=== PATIENT | male | born 1995 | race Two or more races ===

== ENCOUNTER 2018-07-02 11:41 | Emergency (ER) | payer OTHER ==
[~2018-07-02] VITALS: Ht 188 cm; Wt 72.6 kg
[2018-07-02] MEDS ORDERED: LIDOCAINE 2% (LOCAL ANESTH.) PF 5ml SDV ONE (13:14)
[2018-07-02] MEDS ORDERED: cefTRIAXone 1GM/50ML D5W 50 ML IV ONE ×2 (13:47→14:00)
[2018-07-02 15:11] VITALS: BP 120/68
== END 2018-07-02 16:26 ==
LOC: ER 11:45 → EEVIPCON 11:45 → ER 16:26
DX: S63.125A Dislocation of interphalangeal joint of left thumb, initial encounter (principal); S61.012A Laceration without foreign body of left thumb without damage to nail, initial encounter; W21.05XA Struck by basketball, initial encounter; Y93.67 Activity, basketball; Y99.8 Other external cause status; Y92.89 Other specified places as the place of occurrence of the external cause
CPT/HCPCS: 26770; 73130; 96365; 99284; J0696; J2001